=== PATIENT | male | born 1945 | race American Indian/Alaskan Native ===

== ENCOUNTER 2020-04-13 11:09 | Inpatient (IN) | payer MEDICARE ==
[2020-04-13] MEDS ORDERED: CEFEPIME/NS 2 GM/100 ML 2 GM/100 ML BAG IV ONE (12:16)
[2020-04-13] MEDS ORDERED: SODIUM CHLORIDE 0.9% 500 ML 500 ML IV ONE ×2 (12:16→13:55)
--- NOTE | 2020-04-13 12:22 | Emergency Department Report ---
ED Shortness of Breath HPI - General Chief Complaint: Dyspnea/Respdistress Stated Complaint: DAKOTA Time Seen by Provider: 04/13/20 12:10 - History of Present Illness Initial Comments: Patient is a 75-year-old male with history of heart failure who presents to the emergency department with complaint of difficulty breathing. Patient states his symptoms started on today. He reports that he has had chills but no fevers. He has had a cough and he feels like he has phlegm stuck in his throat. Patient cannot tell me about any history of taking Lasix. He does denies any COPD asthma or other lung problems. Patient has a indwelling Bustillos catheter. - Related Data Allergies Allergy/AdvReac Type Severity Reaction Status Date / Time lisinopril AdvReac Swelling Verified 04/13/20 12:26 ED Review of Systems ROS: Stated complaint: DAKOTA Other details as noted in HPI Constitutional: chills. denies: fever Eyes: denies: eye discharge ENT: denies: throat pain Respiratory: cough, shortness of breath Cardiovascular: chest pain Endocrine: no symptoms reported Gastrointestinal: denies: abdominal pain, nausea, vomiting Genitourinary: denies: dysuria Musculoskeletal: denies: back pain Skin: denies: rash Neurological: denies: headache Psychiatric: denies: anxiety Hematological/Lymphatic: denies: easy bleeding ED Physical Exam - General General appearance: alert, in distress - Head Head exam: Present: atraumatic, normocephalic - Eye Eye exam: Present: normal appearance, PERRL, EOMI - ENT ENT exam: Present: normal exam - Neck Neck exam: Present: normal inspection - Respiratory Respiratory exam: Present: normal lung sounds bilaterally, respiratory distress - Cardiovascular Cardiovascular Exam: Present: regular rate, normal rhythm, normal heart sounds - GI/Abdominal GI/Abdominal exam: Present: soft. Absent: distended, tenderness - Rectal Rectal exam: Present: deferred - Extremities Exam Extremities exam: Present: normal inspection - Back Exam Back exam: Present: normal inspection - Neurological Exam Neurological exam: Present: alert, oriented X3 - Psychiatric Psychiatric exam: Present: normal affect - Skin Skin exam: Present: warm, dry, intact ED Course Vital Signs 04/13/20 04/13/20 04/13/20 12:18 13:53 14:54 Temperature 97.7 F Pulse Rate 81 69 Respiratory 20 19 14 Rate Blood Pressure 89/59 Blood Pressure 84/60 [Right] O2 Sat by Pulse 97 95 100 Oximetry 04/13/20 04/13/20 04/13/20 15:01 15:15 15:31 Temperature Pulse Rate 80 80 80 Respiratory 19 18 12 Rate Blood Pressure 145/111 83/57 85/58 Blood Pressure [Right] O2 Sat by Pulse 97 99 100 Oximetry 04/13/20 04/13/20 04/13/20 15:45 16:00 17:01 Temperature Pulse Rate 80 80 80 Respiratory 12 13 12 Rate Blood Pressure 85/58 85/46 91/63 Blood Pressure [Right] O2 Sat by Pulse 100 72 L 100 Oximetry 04/13/20 18:15 Temperature Pulse Rate 80 Respiratory 22 Rate Blood Pressure 97/60 Blood Pressure [Right] O2 Sat by Pulse 99 Oximetry - Reevaluation(s) Reevaluation #1: 04/13/20 13:54 I have reviewed patient's labs and imaging. Patient has a mixed picture as given that he is a half-way resident I am concerned for COVID-19 pneumonia. Patient also has an elevated lactic acid. His chest x-ray shows infiltrates bilaterally which could be consistent with pulmonary edema versus an infectious process. Patient also has a moderate sized right pleural effusion. Plan to maintain patient off supplemental oxygen. Will give gentle fluid boluses in o rder to raise his blood pressure as he is currently hypotensive. If patient remains hypotensive he may require admission to the ICU on pressors. Reevaluation #2: 04/13/20 15:24 Patient is noted to still be hypotensive. Patient's troponin is mildly elevated but he denies chest pain. Will order repeat troponin. Will do bedside ultrasound to evaluate cardiac function and patient likely be started on dopamine. 04/13/20 19:17 Reevaluation #3: 04/13/20 19:18 Central line was placed. Dopamine has been ordered in order to maintain patient's maps above 65. - Central Line Placement Right IJ Consent Obtained: written consent Time Out Performed: Yes Patient Placed on Monitor/Pulse Ox: Yes Prep: mask, gown, gloves Central Line Prep: Chlorhexidine scrub, sterile drapes applied Local Anesthesia Used: Lidocaine 1% Amount of Anesthesia Used (mls): 2 Ultrasound Used for Placement: Yes Central Line Lumen Inserted: triple Bloods Obtained for Lab: Yes Central Line Position: good blood return, all ports aspirated, flus, sutured in place with 2-0 Dressing Applied: Tegaderm Post Procedure X-Ray: tip of catheter in good p Patient Tolerated Procedure: well, no complications Complications: none ED Medical Decision Making - Lab Data Result diagrams: 04/13/20 12:38 04/13/20 12:37 - EKG Data -: EKG Interpreted by Me - EKG Data When compared to previous EKG there are: previous EKG unavailable 04/13/20 15:[address] rhythm atrial-ventricular dual sinus rhythm, rate of 80, left axis deviation. - Medical Decision Making 75-year-old male with history of heart failure who presents to the emergency department with complaint of shortness of breath. Patient is a half-way resident. Differential includes pneumonia, COVID-19 infection with pneumonia, sepsis, ACS, heart failure exacerbation. Plan for evaluation with EKG, chest x- ray. Patient initial blood pressure is hypotensive so he will get a 500 cc fluid bolus we will reassess him after this bolus. He will also be started on IV antibiotics, vancomycin and cefepime as he is currently undergoing treatment for pneumonia. Patient likely to be admitted for further management. Critical care attestation.: If time is entered above; I have spent that time in minutes in the direct care of this critically ill patient, excluding procedure time. ED Disposition Clinical Impression: Acute decompensated heart failure, Cardiogenic shock Disposition: OP ADMIT IP TO THIS HOSP Is pt being admited?: Yes Does the pt Need Aspirin: Yes Condition: Critical Referrals: SHAQUILLE SAUCEDA MD [Primary Care Provider] - 3-5 Days
--- NOTE | 2020-04-13 12:58 | XRay Report ---
CHEST 1 VIEW INDICATION: cough; sepsis. COMPARISON: None FINDINGS: Support devices: Multilead pacemaker device is in position Heart: Mild cardiomegaly Lungs/Pleura: Mild central pulmonary venous congestion and small to medium right pleural effusion. No pneumothorax. Additional findings: None. IMPRESSION: Mild CHF Signer Name: Marty Calderón Jr, MD Signed: 04/13/2020 12:53 PM Workstation Name: [id number]
[2020-04-13] MEDS ORDERED: VANCOMYCIN PHARMACY TO DOSE IV SCH (13:00)
[2020-04-13 13:11] LABS: Basophils # (Auto) 0.1 K/mm3 (0.0-0.1); Basophils % (Auto) 1.3 % (0.0-1.8); Eosinophils # (Auto) 0.1 K/mm3 (0.0-0.4); Eosinophils % (Auto) 0.9 % (0.0-4.3); Hematocrit 37.5 % (35.5-45.6); Hemoglobin 12.2 gm/dl (11.8-15.2); Lymphocytes # (Auto) 1.1 K/mm3 (1.2-5.4); Lymphocytes % (Auto) 13.8 % (13.4-35.0); Mean Corpuscular HGB Conc 33 % (32-34); Mean Corpuscular Volume 96 fl (84-94); Monocytes # (Auto) 0.6 K/mm3 (0.0-0.8); Monocytes % (Auto) 7.7 % (0.0-7.3); Platelet Count 244 K/mm3 (140-440); Red Blood Count 3.91 M/mm3 (3.65-5.03); Red Cell Distribution Width 17.6 % (13.2-15.2)
[2020-04-13 13:23] LABS: Partial Thromboplastin Time 27.4 Sec. (24.2-36.6)
[2020-04-13 13:38] LABS: Albumin 2.7 g/dL (3.9-5); Calcium 8.5 mg/dL (8.4-10.2)
[2020-04-13] MEDS ORDERED: VANCOMYCIN 1,500 MG in SODIUM CHLORIDE 0.9% 500 ML 500 ML IV ONE (14:00)
[2020-04-13 14:25] LABS: Chol/HDL Ratio 2.42 %
--- NOTE | 2020-04-13 14:53 | Nuclear Medicine Report ---
Nuclear medicine perfusion only lung scan History: ELEVATED DIMER; SOB; ELEVATED CREATINIE Comparison: Chest radiograph dated 04/13/2020. Procedure: The patient was administered 5.0 mCi of technetium 99m labeled MAA intravenously. Findings: Perfusion abnormality of the right lung base likely related to pleural effusion and atelect asis seen on chest radiograph. No segmental wedge-shaped perfusion abnormalities. Artifact noted over the left chest wall secondary to the patient's cardiac device. Radiotracer noted along the right arm . Impression: Low probability of pulmonary embolism. Perfusion abnormality in the right lung base likel y related to the pleural effusion and atelectasis seen on chest radiograph. Signer Name: Silvano Reilly MD Signed: 04/13/2020 2:49 PM Workstation Name: [id number]
[2020-04-13] MEDS ORDERED: ASPIRIN 81 MG TAB CHEW PO ONE (15:04)
[2020-04-13] MEDS ORDERED: DOPamine/D5W 800 MG/250 ML 800 MG/250 ML BAG IV ONE (15:43)
[2020-04-13] MEDS ORDERED: ACETAMINOPHEN 500 MG TAB PO ONE (16:22)
[2020-04-13 16:28] LABS: Bacteria,Urine 4+ /HPF (Negative); Bilirubin,Urine NEG (Negative); Blood,Urine NEG (Negative); Color,Urine Yellow (Yellow); Urobilinogen,Urine < 2.0 mg/dL (<2.0)
[2020-04-13 16:39] LABS: Protein,Urine >500 mg/dL (Negative)
[2020-04-13 19:08] LABS: INR 1.42 (0.87-1.13)
--- NOTE | 2020-04-13 19:15 | XRay Report ---
CHEST 1 VIEW INDICATION: cvl placement COMPARISON: Earlier exam same day FINDINGS: Support devices: Right jugular line has been placed, with its tip in the superior vena cava, immediat yahir above the atriocaval junction. Heart: Mildly enlarged but stable Lungs/Pleura: Pleural parenchymal disease in the right base, unchanged. Diffuse interstitial edema ap pears minimally improved. IMPRESSION: 1. Right jugular line in the superior vena cava. 2. Minimal improvement in the interstitial edema. Signer Name: Georges New MD Signed: 04/13/2020 7:11 PM Workstation Name: [id number]
[2020-04-13] MEDS ORDERED: HEPARIN 5,000 UNIT/1 ML VIAL SUB-Q SCH (22:00)
[2020-04-13] MEDS ORDERED: SODIUM CHLORIDE 0.9% 250ML 250 ML IV ONE (23:17)
[2020-04-14] MEDS ORDERED: ACETAMINOPHEN 325 MG TAB PO ONE (00:03)
--- NOTE | 2020-04-14 01:10 | History and Physical Report ---
History of Present Illness Date of examination: 04/14/20 Date of admission: 04/13/20 17:07 Chief complaint: SOB 3 days History of present illness: 75-year-old man with history of congestive heart failure, hypertension, coronary artery disease and peripheral neuropathy comes in for difficulty breathing of 1 day duration. Patient has orthopnea. Patient has cough. No no fever or chills. No exposure to coronavirus. No COPD or asthma. Patient has indwelling Bustillos catheter. Shortness of breath on minimal exertion. Patient has class IV NYHA symptoms. Review of Systems ROS: Stated complaint: DAKOTA Other details as noted in HPI Constitutional: chills. denies: fever Eyes: denies: eye discharge ENT: denies: throat pain Respiratory: cough, shortness of breath Cardiovascular: chest pain Endocrine: no symptoms reported Gastrointestinal: denies: abdominal pain, nausea, vomiting Genitourinary: denies: dysuria Musculoskeletal: denies: back pain Skin: denies: rash Neurological: denies: headache Psychiatric: denies: anxiety Hematological/Lymphatic: denies: easy bleeding Past History Past Medical History: CAD, GERD, heart failure, hyperlipidemia, other (E rythematous) Past Surgical History: No surgical history Social history: full code Family history: hypertension Medications and Allergies Allergies Allergy/AdvReac Type Severity Reaction Status Date / Time lisinopril AdvReac Swelling Verified 04/13/20 12:26 Home Medications Medication Instructions Recorded Confirmed Last Taken Type Amiodarone 200 mg PO DAILY 04/14/20 04/14/20 Unknown History AtorvaSTATin 40 mg PO DAILY 04/14/20 04/14/20 Unknown History Gabapentin 300 mg PO DAILY 04/14/20 04/14/20 Unknown History Metoprolol 25 mg PO DAILY 04/14/20 04/14/20 Unknown History Omeprazole 40 mg PO DAILY 04/14/20 04/14/20 Unknown History Plavix 75 mg PO DAILY 04/14/20 04/14/20 Unknown History Spironolactone 25 mg PO DAILY 04/14/20 04/14/20 Unknown History Active Meds: Active Medications Heparin Sodium (Porcine) (Heparin 5,000 Unit/1 Ml Vial) 5,000 unit SUB-Q Q8HR MEGAN Last Admin: 04/13/20 22:52 Dose: 5,000 unit Documented by: Dopamine HCl/Dextrose (Intropin Drip 800 Mg/D5w 250 Ml) 800 mg in 250 mls @ 2.619 mls/hr IV TITR ONE; Protocol Stop: 04/17/20 15:10 Last Titration: 04/13/20 20:50 Dose: 0 mcg/kg/min, 0 mls/hr Documented by: Exam - Constitutional Vitals: Temp Pulse Resp BP Pulse Ox 97.7 F 80 24 89/61 95 04/13/20 12:18 04/13/20 21:00 04/13/20 21:00 04/13/20 21:00 04/13/20 21:00 General appearance: Present: mild distress, well-nourished - EENT Eyes: Present: PERRL ENT: hearing intact, clear oral mucosa - Neck Neck: Present: supple, normal ROM - Respiratory Respiratory effort: normal Respiratory: bilateral: CTA - Cardiovascular Heart rate: 78 Rhythm: regular Heart Sounds: Present: S1 & S2. Absent: rub, click - Extremities Extremities: no ischemia, pulses intact, pulses symmetrical, No edema Peripheral Pulses: within normal limits - Abdominal General gastrointestinal: Present: soft, non-tender, non-distended, normal bowel sounds Male genitourinary: Present: normal - Integumentary Integumentary: Present: clear, warm, dry - Musculoskeletal Musculoskeletal: gait normal, strength equal bilaterally - Psychiatric Psychiatric: appropriate mood/affect, intact judgment & insight - Neurologic Neurologic: CNII-XII intact, moves all extremities - Allied Health Allied health notes reviewed: nursing, case management HEART Score - HEART Score History: Highly suspicious EKG: Non-specific Age: > 65 Risk factors: > 3 risk factors or hx of atherosclerotic disease Troponin: Troponin T 0.076 ng/mL (0.00-0.029) H 04/13/20 18:45 - Critical Actions Critical Actions: 4-6 pts:12-16.6% risk of adverse cardiac event. Should be admitted Results - Labs CBC & Chem 7: 04/13/20 12:38 04/13/20 12:37 Labs: Laboratory Last Values WBC 8.0 K/mm3 (4.5-11.0) 04/13/20 12:38 RBC 3.91 M/mm3 (3.65-5.03) 04/13/20 12:38 Hgb 12.2 gm/dl (11.8-15.2) 04/13/20 12:38 Hct 37.5 % (35.5-45.6) 04/13/20 12:38 MCV 96 fl (84-94) H 04/13/20 12:38 MCH 31 pg (28-32) 04/13/20 12:38 MCHC 33 % (32-34) 04/13/20 12:38 RDW 17.6 % (13.2-15.2) H 04/13/20 12:38 Plt Count 244 K/mm3 (140-440) 04/13/20 12:38 Lymph % (Auto) 13.8 % (13.4-35.0) 04/13/20 12:38 Price % (Auto) 7.7 % (0.0-7.3) H 04/13/20 12:38 Eos % (Auto) 0.9 % (0.0-4.3) 04/13/20 12:38 Baso % (Auto) 1.3 % (0.0-1.8) 04/13/20 12:38 Lymph # (Auto) 1.1 K/mm3 (1.2-5.4) L 04/13/20 12:38 Price # (Auto) 0.6 K/mm3 (0.0-0.8) 04/13/20 12:38 Eos # (Auto) 0.1 K/mm3 (0.0-0.4) 04/13/20 12:38 Baso # (Auto) 0.1 K/mm3 (0.0-0.1) 04/13/20 12:38 Seg Neutrophils % 76.3 % (40.0-70.0) H 04/13/20 12:38 Seg Neutrophils # 6.1 K/mm3 (1.8-7.7) 04/13/20 12:38 PT 17.2 Sec. (12.2-14.9) H 04/13/20 18:45 INR 1.42 (0.87-1.13) H 04/13/20 18:45 APTT 27.4 Sec. (24.2-36.6) 04/13/20 12:37 D-Dimer 1940.43 ng/mlDDU (0-234) H 04/13/20 12:37 Sodium 132 mmol/L (137-145) L 04/13/20 12:37 Potassium 5.0 mmol/L (3.6-5.0) 04/13/20 12:37 Chloride 98.6 mmol/L (98-107) 04/13/20 12:37 Carbon Dioxide 23 mmol/L (22-30) 04/13/20 12:37 Anion Gap 15 mmol/L 04/13/20 12:37 BUN 30 mg/dL (9-20) H 04/13/20 12:37 Creatinine 1.7 mg/dL (0.8-1.3) H 04/13/20 12:37 Estimated GFR 48 ml/min 04/13/20 12:37 BUN/Creatinine Ratio 18 % 04/13/20 12:37 Glucose 108 mg/dL (75-100) H 04/13/20 12:37 Lactic Acid 1.90 mmol/L (0.7-2.0) 04/13/20 15:01 Calcium 8.5 mg/dL (8.4-10.2) 04/13/20 12:37 Magnesium 2.50 mg/dL (1.7-2.3) H 04/13/20 12:37 Ferritin 520.4 ng/mL (30.0-300.0) H 04/13/20 12:37 Total Bilirubin 0.30 mg/dL (0.1-1.2) 04/13/20 12:37 AST 34 units/L (5-40) 04/13/20 12:37 ALT 60 units/L (7-56) H 04/13/20 12:37 Alkaline Phosphatase 137 units/L (35-129) H 04/13/20 12:37 Lactate Dehydrogenase 302 units/L (91-180) H 04/13/20 12:37 Troponin T 0.076 ng/mL (0.00-0.029) H 04/13/20 18:45 C-Reactive Protein 2.00 mg/dL (0.00-1.30) H 04/13/20 12:37 NT-Pro-B Natriuret Pep 25378 pg/mL (0-900) H 04/13/20 12:37 Total Protein 6.5 g/dL (6.3-8.2) 04/13/20 12:37 Albumin 2.7 g/dL (3.9-5) L 04/13/20 12:37 Albumin/Globulin Ratio 0.7 % 04/13/20 12:37 Triglycerides 73 mg/dL (2-149) 04/13/20 12:37 Cholesterol 143 mg/dL (50-199) 04/13/20 12:37 LDL Cholesterol Direct 73 mg/dL (50-130) 04/13/20 12:37 HDL Cholesterol 59 mg/dL (40-59) 04/13/20 12:37 Cholesterol/HDL Ratio 2.42 % 04/13/20 12:37 Procalcitonin 0.21 ng/mL (<0.15) 04/13/20 12:37 Urine Color Yellow (Yellow) 04/13/20 16:07 Urine Turbidity Cloudy (Clear) 04/13/20 16:07 Urine pH 6.0 (5.0-7.0) 04/13/20 16:07 Ur Specific [place] 1.023 (1.003-1.030) 04/13/20 16:07 Urine Protein >500 mg/dL (Negative) 04/13/20 16:07 Urine Glucose (UA) Neg mg/dL (Negative) 04/13/20 16:07 Urine Ketones Tr mg/dL (Negative) 04/13/20 16:07 Urine Blood Neg (Negative) 04/13/20 16:07 Urine Nitrite Neg (Negative) 04/13/20 16:07 Urine Bilirubin Neg (Negative) 04/13/20 16:07 Urine Urobilinogen < 2.0 mg/dL (<2.0) 04/13/20 16:07 Ur Leukocyte Esterase Lg (Negative) 04/13/20 16:07 Urine WBC (Auto) 173.0 /HPF (0.0-6.0) H 04/13/20 16:07 Urine RBC (Auto) 8.0 /HPF (0.0-6.0) 04/13/20 16:07 Urine Bacteria (Auto) 4+ /HPF (Negative) 04/13/20 16:07 Short CBC 04/13/20 Range/Units 12:38 WBC 8.0 (4.5-11.0) K/mm3 Hgb 12.2 (11.8-15.2) gm/dl Hct 37.5 (35.5-45.6) % Plt Count 244 (140-440) K/mm3 BMP 04/13/20 12:37 Sodium 132 L Potassium 5.0 Chloride 98.6 Carbon Dioxide 23 BUN 30 H Creatinine 1.7 H Glucose 108 H Calcium 8.5 Cardiac Enzymes 04/13/20 04/13/20 04/13/20 Range/Units 12:37 15:17 18:45 Troponin T 0.071 H 0.069 H 0.076 H (0.00-0.029) ng/mL Liver Function 04/13/20 Range/Units 12:37 Total Bilirubin 0.30 (0.1-1.2) mg/dL AST 34 (5-40) units/L ALT 60 H (7-56) units/L Alkaline Phosphatase 137 H (35-129) units/L Albumin 2.7 L (3.9-5) g/dL Urine 04/13/20 Range/Units 16:07 Urine Color Yellow (Yellow) Urine pH 6.0 (5.0-7.0) Ur Specific [place] 1.023 (1.003-1.030) Urine Protein >500 (Negative) mg/dL Urine Glucose (UA) Neg (Negative) mg/dL Short CBC 04/13/20 Range/Units 12:38 WBC 8.0 (4.5-11.0) K/mm3 Hgb 12.2 (11.8-15.2) gm/dl Hct 37.5 (35.5-45.6) % Plt Count 244 (140-440) K/mm3 [facility] 04/13/20 12:37 Sodium 132 L Potassium 5.0 Chloride 98.6 Carbon Dioxide 23 BUN 30 H Creatinine 1.7 H Glucose 108 H Calcium 8.5 Cardiac Enzymes 04/13/20 04/13/20 04/13/20 Range/Units 12:37 15:17 18:45 Troponin T 0.071 H 0.069 H 0.076 H (0.00-0.029) ng/mL Liver Function 04/13/20 Range/Units 12:37 Total Bilirubin 0.30 (0.1-1.2) mg/dL AST 34 (5-40) units/L ALT 60 H (7-56) units/L Alkaline Phosphatase 137 H (35-129) units/L Albumin 2.7 L (3.9-5) g/dL Urine 04/13/20 Range/Units 16:07 Urine Color Yellow (Yellow) Urine pH 6.0 (5.0-7.0) Ur Specific [place] 1.023 (1.003-1.030) Urine Protein >500 (Negative) mg/dL Urine Glucose (UA) Neg (Negative) mg/dL Microbiology: Microbiology 04/13/20 12:37 Peripheral/Venous Blood Culture - Preliminary Culture in Progress 04/13/20 12:37 Peripheral/Venous Blood Culture - Preliminary Culture in Progress - Imaging and Cardiology EKG: report reviewed (Sinus rhythm) Chest x-ray: report reviewed Imaging and Cardiology: Chest x-ray Mild CHF Bustillos/IV: IV Catheter Type [Right Hand] INT / Saline Lock Assessment and Plan Advance Directives: Yes (Fy\ull code) VTE prophylaxis?: Chemical Plan of care discussed with patient/family: Yes - Patient Problems (1) Acute exacerbation of CHF (congestive heart failure) Current Visit: Yes Status: Acute Qualifiers: Heart failure type: combined systolic and diastolic Qualified Code(s): I50.43 - 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 transplanted heart: [place] heart Plan to address problem: On Plavix (3) Hypotension Current Visit: Yes Status: Acute Plan to address problem: On dopamine drip. Titrate to discontinue DC (4) Peripheral neuropathy Current Visit: Yes Status: Chronic Qualifiers: Peripheral neuropathy type: polyneuropathy, unspecified Qualified Code(s): G62.9 - Polyneuropathy, unspecified Plan to address problem: Continue gabapentin (5) Hyperlipidemia Current Visit: Yes Status: Chronic Qualifiers: Hyperlipidemia type: mixed hyperlipidemia Qualified Code(s): E78.2 - Mixed hyperlipidemia Plan to address problem: Continue statins (6) GERD (gastroesophageal reflux disease) Current Visit: Yes Status: Chronic Qualifiers: Esophagitis presence: without esophagitis Qualified Code(s): K21.9 - Gastro-esophageal reflux disease without esophagitis Plan to address problem: Continue PPIs (7) Arrhythmia Current Visit: Yes Status: Chronic Qualifiers: Arrhythmia type: unspecified cardiac arrhythmia Qualified Code(s): I49.9 - Cardiac arrhythmia, unspecified Plan to address problem: Continue amiodarone (8) Person under investigation for COVID-19 Current Visit: Yes Status: Acute Plan to address problem: Unlikely but ED ordered the coronavirus PCR (9) DVT prophylaxis Current Visit: Yes Status: Acute Plan to address problem: On heparin and GI prophylaxis
[2020-04-14] MEDS ORDERED: ONDANSETRON 4 MG/2 ML INJ IV PRN (01:11)
[2020-04-14] MEDS ORDERED: HYDROmorphone 1 MG/1 ML INJ IV PRN (01:11)
[2020-04-14] MEDS ORDERED: FAMOTIDINE 20 MG/2 ML INJ IV SCH (02:00)
[2020-04-14] MEDS: cefTRIAXone/NS 2 GM/100 ML 2 GM/100 ML BAG IV SCH (05:18)
[2020-04-14] MEDS: FAMOTIDINE 20 MG/2 ML INJ IV SCH ×3 (05:23→22:01)
[2020-04-14] MEDS: FUROSEMIDE 40 MG/4 ML INJ IV SCH (05:24)
[2020-04-14] MEDS ORDERED: NON-FORMULARY EACH (Amiodarone 200 MG) PO SCH (10:30)
[2020-04-14] MEDS: POTASSIUM CHLORIDE ER 20 MEQ TAB PO SCH (10:42)
[2020-04-14] MEDS: HEPARIN 5,000 UNIT/1 ML VIAL SUB-Q SCH ×2 (10:43→22:02)
[2020-04-14] MEDS ORDERED: NON-FORMULARY EACH (Gabapentin 300 MG) PO SCH (10:45)
[2020-04-14] MEDS ORDERED: NON-FORMULARY EACH (Spironolactone 25 MG) PO SCH (10:45)
[2020-04-14] MEDS ORDERED: NON-FORMULARY EACH (Atorvastatin 40 MG) PO SCH (10:45)
[2020-04-14] MEDS ORDERED: NON-FORMULARY EACH (Plavix 75 MG) PO SCH (10:45)
[2020-04-14] MEDS ORDERED: NON-FORMULARY EACH (Omeprazole 40 MG) PO SCH (10:45)
[2020-04-14] MEDS: CLOPIDOGREL 75 MG TAB PO SCH (11:13)
[2020-04-14] MEDS: GABAPENTIN 300 MG CAP PO SCH (11:13)
[2020-04-14] MEDS: AMIODARONE 200 MG TAB PO SCH (11:13)
[2020-04-14] MEDS: SPIRONOLACTONE 25 MG TAB PO SCH (11:14)
--- NOTE | 2020-04-14 14:55 | Consultation ---
History of Present Illness Consult date: 04/14/20 Consult reason: congestive heart failure History of present illness: This patient is a 75-year-old man from the [facility], admitted with shortness of breath, nonproductive cough and clinical presentation consistent with heart failure exacerbation and fluid overload. He usually receives his care at the [facility], has a history of a dilated cardiomyopathy and an in situ dual-chamber cardiac defibrillator. He states that his defibrillator was implanted about 12 years ago, and he has intermittent follow-up at the [facility] in [place]. He is unable to articulate his most recent left ventricular ejection fraction assessment, and unable to articulate results of any recent or prior coronary artery disease evaluation. His medications on this presentation include amiodarone, metoprolol, spironolactone. He is also on a statin and Plavix, but no afterload reducing agent is listed. ECG on this presentation is a dual chamber paced rhythm, chest x-ray shows a moderate to severe enlargement of the cardiac silhouette, indwelling dual- chamber ICD, small right pleural effusion and mild bilateral interstitial edema. Past History Past Medical History: CAD, GERD, heart failure, hyperlipidemia Past Surgical History: No surgical history, Other (Dual-chamber ICD implant) Social history: full code Family history: hypertension Medications and Allergies Allergies Allergy/AdvReac Type Severity Reaction Status Date / Time lisinopril AdvReac Swelling Verified 04/13/20 12:26 Home Medications Medication Instructions Recorded Confirmed Last Taken Type Amiodarone 200 mg PO DAILY 04/14/20 04/14/20 Unknown History AtorvaSTATin 40 mg PO DAILY 04/14/20 04/14/20 Unknown History Gabapentin 300 mg PO DAILY 04/14/20 04/14/20 Unknown History Metoprolol 25 mg PO DAILY 04/14/20 04/14/20 Unknown History Omeprazole 40 mg PO DAILY 04/14/20 04/14/20 Unknown History Plavix 75 mg PO DAILY 04/14/20 04/14/20 Unknown History Spironolactone 25 mg PO DAILY 04/14/20 04/14/20 Unknown History Active Meds: Active Medications Acetaminophen (Acetaminophen 325 Mg Tab) 650 mg PO Q4H PRN PRN Reason: Pain MILD(1-3)/Fever >100.5/KAY Amiodarone HCl (Amiodarone 200 Mg Tab) 200 mg PO DAILY MEGAN Last Admin: 04/14/20 11:13 Dose: 200 mg Documented by: Atorvastatin Calcium (Atorvastatin 40 Mg Tab) 40 mg PO QHS [facility] Clopidogrel Bisulfate (Clopidogrel 75 Mg Tab) 75 mg PO QDAY [facility] Last Admin: 04/14/20 11:13 Dose: 75 mg Documented by: Famotidine (Famotidine 20 Mg/2 Ml Inj) 10 mg IV BID [facility] Last Admin: 04/14/20 10:43 Dose: 10 mg Documented by: Furosemide (Furosemide 40 Mg/4 Ml Inj) 40 mg IV 0600 [facility] Last Admin: 04/14/20 05:24 Dose: 40 mg Documented by: Gabapentin (Gabapentin 300 Mg Cap) 300 mg PO DAILY [facility] Last Admin: 04/14/20 11:13 Dose: 300 mg Documented by: Heparin Sodium (Porcine) (Heparin 5,000 Unit/1 Ml Vial) 5,000 unit SUB-Q Q12H [facility] Last Admin: 04/14/20 10:43 Dose: 5,000 unit Documented by: Hydromorphone HCl (Hydromorphone 1 Mg/1 Ml Inj) 0.5 mg IV Q3H PRN PRN Reason: Pain , Severe (7-10) Dopamine HCl/Dextrose (Intropin Drip 800 Mg/D5w 250 Ml) 800 mg in 250 mls @ 2.619 mls/hr IV TITR ONE; Protocol Stop: 04/17/20 15:10 Last Titration: 04/13/20 20:50 Dose: 0 mcg/kg/min, 0 mls/hr Documented by: Ceftriaxone Sodium (Rocephin/Ns 2 Gm/100 Ml) 2 gm in 100 mls @ 200 mls/hr IV Q24H [facility]; Protocol Last Admin: 04/14/20 05:18 Dose: 200 mls/hr Documented by: Milrinone Lactate/Dextrose (Milrinone-D5w 20 Mg/100 Ml) 20 mg in 100 mls @ 5 .235 mls/hr IV TITR [facility] Stop: 04/17/20 14:59 Isosorbide Dinitrate/Hydralazine (Isosorb Dinit/Hydralazine 20-37.5mg Tab) 1 each PO Q8HR [facility] Ondansetron HCl (Ondansetron 4 Mg/2 Ml Inj) 4 mg IV Q8H PRN PRN Reason: Nausea And Vomiting Oxycodone/Acetaminophen (Oxycodone /Acetaminophen 5-325mg Tab) 1 tab PO Q6H PRN PRN Reason: Pain, Moderate (4-6) Potassium Chloride (Potassium Chloride Er 20 Meq Tab) 20 meq PO Q24HR [facility] Last Admin: 04/14/20 10:42 Dose: 20 meq Documented by: Sodium Chloride (Sodium Chloride 0.9% 10 Ml Flush Syringe) 10 ml IV BID [facility] Last Admin: 04/14/20 11:02 Dose: 10 ml Documented by: Sodium Chloride (Sodium Chloride 0.9% 10 Ml Flush Syringe) 10 ml IV PRN PRN PRN Reason: LINE FLUSH Spironolactone (Spironolactone 25 Mg Tab) 25 mg PO QDAY [facility] Last Admin: 04/14/20 11:14 Dose: Not Given Documented by: Review of Systems Cardiovascular: orthopnea, shortness of breath, no chest pain, no palpitations, no rapid/irregular heart beat, no edema, no syncope, no lightheadedness Physical Examination Vital Signs Temp Pulse Resp BP Pulse Ox 97.7 F 81 20 89/59 97 04/13/20 12:18 04/13/20 12:18 04/13/20 12:18 04/13/20 12:18 04/13/20 12:18 General appearance: mild distress HEENT: Positive: PERRL Neck: Positive: neck supple Cardiac: Positive: Irregularly Regular Lungs: Positive: Decreased Breath Sounds Neuro: Positive: Grossly Intact Abdomen: Positive: Soft Male genitourinary: Positive: deferred Skin: Positive: Clear Extremities: Absent: edema Results 04/13/20 12:38 04/13/20 12:37 Coagulation 04/13/20 Range/Units 18:45 PT 17.2 H (12.2-14.9) Sec. INR 1.42 H (0.87-1.13) EKG interpretations Pacemaker: ventricular pacing w/capt, atrial pacing w/capture Assessment and Plan - Patient Problems (1) Acute exacerbation of CHF (congestive heart failure) Current Visit: Yes Status: Acute Qualifiers: Heart failure type: combined systolic and diastolic Qualified Code(s): I50.43 - Acute on chronic combined systolic (congestive) and diastolic (congestive) heart failure Plan to address problem: Patient with a history of dilated cardiomyopathy, in situ cardiac defibrillator, usual care at the [facility]. He presents with shortness of breath and evidence of decompensated congestive heart failure. In addition to guideline directed medical therapy, we will use aggressive diuretic therapy, salt reduction and possible trial of intravenous milrinone. An echocardiogram will be done for left ventricular function reassessment. Other cardiac evaluation will depend on clinical course.
[2020-04-14] MEDS: ISOSORB DINIT/HYDRALAZINE 20-37.5MG TAB PO SCH (18:26)
[2020-04-14] MEDS: ACETAMINOPHEN 325 MG TAB PO PRN (20:41)
--- NOTE | 2020-04-14 21:00 | Progress Note ---
Assessment and Plan - Patient Problems (1) Acute exacerbation of CHF (congestive heart failure) Current Visit: Yes Status: Acute Qualifiers: Heart failure type: combined systolic and diastolic Qualified Code(s): I50.43 - Acute on chronic combined systolic (congestive) and diastolic (congestive) heart failure Plan to address problem: BNP is elevated History is consistent with CHF exacerbation Daily weights and intake output IV Lasix only 1 dose at 6 AM because of the hyper hypotension Patient started on milrinone drip for optimizing his ejection fraction Milligram drip to continue till at 1500hrs (2) Coronary artery disease Current Visit: Yes Status: Chronic Qualifiers: Coronary Disease-Associated Artery/Lesion type: [place] artery [place] vs. transplanted heart: [place] heart Plan to address problem: On Plavix (3) Hypotension Current Visit: Yes Status: Acute Plan to address problem: Improved (4) Peripheral neuropathy Current Visit: Yes Status: Chronic Qualifiers: Peripheral neuropathy type: polyneuropathy, unspecified Qualified Code(s): G62.9 - Polyneuropathy, unspecified Plan to address problem: Continue gabapentin (5) Hyperlipidemia Current Visit: Yes Status: Chronic Qualifiers: Hyperlipidemia type: mixed hyperlipidemia Qualified Code(s): E78.2 - Mixed hyperlipidemia Plan to address problem: Continue statins (6) GERD (gastroesophageal reflux disease) Current Visit: Yes Status: Chronic Qualifiers: Esophagitis presence: without esophagitis Qualified Code(s): K21.9 - Gastro-esophageal reflux disease without esophagitis Plan to address problem: Continue PPIs (7) Arrhythmia Current Visit: Yes Status: Chronic Qualifiers: Arrhythmia type: unspecified cardiac arrhythmia Qualified Code(s): I49.9 - Cardiac arrhythmia, unspecified Plan to address problem: Continue amiodarone (8) Person under investigation for COVID-19 Current Visit: Yes Status: Acute Plan to address problem: Unlikely but ED ordered the coronavirus PCR (9) DVT prophylaxis Current Visit: Yes Status: Acute Plan to address problem: On heparin and GI prophylaxis Subjective Date of service: 04/14/20 Principal diagnosis: CHF exacerbation Interval history: 75-year-old man with history of congestive heart failure, hypertension, coronary artery disease and peripheral neuropathy comes in for difficulty breathing of 1 day duration. Patient has orthopnea. Patient has cough. No no fever or chills. No exposure to coronavirus. No COPD or asthma. Patient has indwelling Bustillos catheter. Shortness of breath on minimal exertion. Patient has class IV NYHA symptoms. Patient started on milrinone drip pressure last April 17, 2020 Objective - Constitutional Vitals: Vital Signs - 12hr 04/14/20 04/14/20 04/14/20 09:00 09:09 11:18 Temperature Pulse Rate Pulse Rate [ 80 Radial] Respiratory 16 16 Rate Blood Pressure 111/54 119/58 O2 Sat by Pulse 96 98 97 Oximetry 04/14/20 04/14/20 04/14/20 11:59 12:00 12:11 Temperature Pulse Rate 80 80 80 Pulse Rate [ Radial] Respiratory 11 L 12 23 Rate Blood Pressure 109/46 109/46 O2 Sat by Pulse 97 93 97 Oximetry 04/14/20 04/14/20 04/14/20 12:21 12:33 12:41 Temperature Pulse Rate 80 81 Pulse Rate [ Radial] Respiratory 22 25 H Rate Blood Pressure 109/46 109/46 109/46 O2 Sat by Pulse 98 95 96 Oximetry 04/14/20 04/14/20 04/14/20 12:51 13:00 13:11 Temperature Pulse Rate 80 80 80 Pulse Rate [ Radial] Respiratory 16 18 13 Rate Blood Pressure 109/46 111/58 111/58 O2 Sat by Pulse 93 94 93 Oximetry 04/14/20 04/14/20 04/14/20 13:21 13:30 13:41 Temperature Pulse Rate 80 80 80 Pulse Rate [ Radial] Respiratory 25 H 25 H 26 H Rate Blood Pressure 111/58 111/59 111/59 O2 Sat by Pulse 94 88 94 Oximetry 04/14/20 04/14/20 04/14/20 13:50 13:51 14:00 Temperature Pulse Rate 80 80 Pulse Rate [ 80 Radial] Respiratory 16 16 21 Rate Blood Pressure 111/59 111/59 121/58 O2 Sat by Pulse 96 98 92 Oximetry 04/14/20 04/14/20 04/14/20 14:11 14:21 17:07 Temperature 98.0 F Pulse Rate 80 80 80 Pulse Rate [ Radial] Respiratory 15 24 18 Rate Blood Pressure 121/58 121/58 88/58 O2 Sat by Pulse 99 98 100 Oximetry 04/14/20 04/14/20 19:41 20:41 Temperature 97.3 F L Pulse Rate 80 Pulse Rate [ Radial] Respiratory 17 20 Rate Blood Pressure 90/56 O2 Sat by Pulse 97 Oximetry General appearance: Present: no acute distress, well-nourished - EENT Eyes: PERRL, EOM intact ENT: hearing intact, clear oral mucosa Ears: bilateral: normal - Neck Neck: supple, normal ROM - Respiratory Respiratory effort: normal Respiratory: bilateral: CTA - Breasts Breasts: normal - Cardiovascular Heart rate: 78 Rhythm: regular Heart Sounds: Present: S1 & S2. Absent: gallop, rub Extremities: pulses intact, No edema, normal color, Full ROM - Gastrointestinal General gastrointestinal: Present: soft, non-tender, non-distended, normal bowel sounds - Genitourinary Male genitourinary: normal - Integumentary Integumentary: clear, warm, dry - Musculoskeletal Musculoskeletal: 1, strength equal bilaterally - Neurologic Neurologic: moves all extremities - Psychiatric Psychiatric: memory intact, appropriate mood/affect, intact judgment & insight - Labs CBC & Chem 7: 04/15/20 07:05 04/15/20 07:05 Labs: Abnormal lab results 04/14/20 Range/Units 11:47 POC Glucose 123 H (70-105) mg/dL HEART Score - HEART Score EKG: Non-specific Age: > 65 Risk factors: > 3 risk factors or hx of atherosclerotic disease Troponin: Troponin T 0.076 ng/mL (0.00-0.029) H 04/13/20 18:45 - Critical Actions Critical Actions: 4-6 pts:12-16.6% risk of adverse cardiac event. Should be admitted
[2020-04-15] MEDS: cefTRIAXone/NS 2 GM/100 ML 2 GM/100 ML BAG IV SCH (02:00)
[2020-04-15] MEDS: FUROSEMIDE 40 MG/4 ML INJ IV SCH (05:45)
[2020-04-15] MEDS: ISOSORB DINIT/HYDRALAZINE 20-37.5MG TAB PO SCH ×3 (05:46→21:40)
[2020-04-15] MEDS: oxyCODONE /ACETAMINOPHEN 5-325MG TAB PO PRN (05:57)
[2020-04-15] MEDS: MILRINONE-D5W 20 MG/100 ML 20 MG/100 ML BAG IV SCH (06:05)
[2020-04-15 08:23] LABS: Basophils # (Auto) 0.1 K/mm3 (0.0-0.1); Basophils % (Auto) 0.7 % (0.0-1.8); Eosinophils # (Auto) 0.1 K/mm3 (0.0-0.4); Eosinophils % (Auto) 0.8 % (0.0-4.3); Hematocrit 34.9 % (35.5-45.6); Hemoglobin 11.3 gm/dl (11.8-15.2); Lymphocytes # (Auto) 0.9 K/mm3 (1.2-5.4); Lymphocytes % (Auto) 12.6 % (13.4-35.0); Mean Corpuscular HGB Conc 33 % (32-34); Mean Corpuscular Volume 97 fl (84-94); Monocytes # (Auto) 0.9 K/mm3 (0.0-0.8); Monocytes % (Auto) 12.3 % (0.0-7.3); Platelet Count 228 K/mm3 (140-440); Red Blood Count 3.61 M/mm3 (3.65-5.03); Red Cell Distribution Width 17.9 % (13.2-15.2)
[2020-04-15 08:37] LABS: Albumin 2.6 g/dL (3.9-5); Calcium 8.2 mg/dL (8.4-10.2)
[2020-04-15] MEDS: GABAPENTIN 300 MG CAP PO SCH (09:50)
[2020-04-15] MEDS: SPIRONOLACTONE 25 MG TAB PO SCH (09:50)
[2020-04-15] MEDS: AMIODARONE 200 MG TAB PO SCH (09:50)
[2020-04-15] MEDS: CLOPIDOGREL 75 MG TAB PO SCH (09:50)
[2020-04-15] MEDS: POTASSIUM CHLORIDE ER 20 MEQ TAB PO SCH (09:50)
[2020-04-15] MEDS: FAMOTIDINE 20 MG/2 ML INJ IV SCH (09:50)
--- NOTE | 2020-04-15 10:09 | Progress Note ---
Assessment and Plan - Patient Problems (1) Acute exacerbation of CHF (congestive heart failure) Current Visit: Yes Status: Acute Qualifiers: Heart failure type: combined systolic and diastolic Qualified Code(s): I50.43 - Acute on chronic combined systolic (congestive) and diastolic (congestive) heart failure Plan to address problem: Patient with a history of dilated cardiomyopathy, in situ cardiac defibrillator, usual care at the [facility]. He presents with shortness of breath and evidence of decompensated congestive heart failure. In addition to guideline directed medical therapy, we will use aggressive diuretic therapy, salt reduction and trial of intravenous milrinone. An echocardiogram has been ordered for left ventricular function reassessment. Other cardiac evaluation will depend on clinical course. Subjective Date of service: 04/15/20 Interval history: Patient is comfortable, shortness of breath has improved, he is tolerating intravenous milrinone. Objective Vital Signs Temp Pulse Pulse Resp BP Pulse Ox 04/15/20 08:47 94 04/15/20 05:57 20 04/15/20 04:49 98.8 F 80 17 107/51 91 04/14/20 22:50 98.6 F 87 16 98/46 98 04/14/20 22:00 80 04/14/20 21:40 100 04/14/20 20:41 20 04/14/20 19:41 97.3 F L 80 17 90/56 97 04/14/20 17:07 98.0 F 80 18 88/58 100 04/14/20 14:21 80 24 121/58 98 04/14/20 14:11 80 15 121/58 99 04/14/20 14:00 80 21 121/58 92 04/14/20 13:51 80 16 111/59 98 04/14/20 13:50 80 16 111/59 96 04/14/20 13:41 80 26 H 111/59 94 04/14/20 13:30 80 25 H 111/59 88 04/14/20 13:21 80 25 H 111/58 94 04/14/20 13:11 80 13 111/58 93 04/14/20 13:00 80 18 111/58 94 04/14/20 12:51 80 16 109/46 93 04/14/20 12:41 81 25 H 109/46 96 04/14/20 12:33 109/46 95 04/14/20 12:21 80 22 109/46 98 04/14/20 12:11 80 23 109/46 97 04/14/20 12:00 80 12 109/46 93 04/14/20 11:59 80 11 L 97 04/14/20 11:18 80 16 119/58 97 - Physical Examination General: No Apparent Distress HEENT: Positive: PERRL Neck: Positive: neck supple Cardiac: Positive: Reg Rate and Rhythm Lungs: Positive: Decreased Breath Sounds Neuro: Positive: Grossly Intact Abdomen: Positive: Soft Skin: Positive: Clear Extremities: Absent: edema - Labs and Meds Cardiac Enzymes 04/15/20 Range/Units 07:05 AST 34 (5-40) units/L CBC 04/15/20 Range/Units 07:05 WBC 7.2 (4.5-11.0) K/mm3 RBC 3.61 L (3.65-5.03) M/mm3 Hgb 11.3 L (11.8-15.2) gm/dl Hct 34.9 L (35.5-45.6) % Plt Count 228 (140-440) K/mm3 Lymph # (Auto) 0.9 L (1.2-5.4) K/mm3 [place] # (Auto) 0.9 H (0.0-0.8) K/mm3 Eos # (Auto) 0.1 (0.0-0.4) K/mm3 Baso # (Auto) 0.1 (0.0-0.1) K/mm3 Comprehensive Metabolic Panel 04/15/20 Range/Units 07:05 Sodium 135 L (137-145) mmol/L Potassium 4.6 (3.6-5.0) mmol/L Chloride 103.3 (98-107) mmol/L Carbon Dioxide 21 L (22-30) mmol/L BUN 28 H (9-20) mg/dL Creatinine 1.7 H (0.8-1.3) mg/dL Glucose 106 H (75-100) mg/dL Calcium 8.2 L (8.4-10.2) mg/dL AST 34 (5-40) units/L ALT 68 H (7-56) units/L Alkaline Phosphatase 125 (35-129) units/L Total Protein 5.9 L (6.3-8.2) g/dL Albumin 2.6 L (3.9-5) g/dL - Imaging and Cardiology EKG: report reviewed (Sinus rhythm) Pacemaker: ventricular pacing w/capt, atrial pacing w/capture
[2020-04-15] MEDS: HEPARIN 5,000 UNIT/1 ML VIAL SUB-Q SCH ×2 (12:35→21:40)
[2020-04-15] MEDS: FAMOTIDINE 10 MG TAB PO SCH ×2 (16:37→21:40)
[2020-04-15] MEDS: ACETAMINOPHEN 325 MG TAB PO PRN ×2 (16:38→21:47)
--- NOTE | 2020-04-15 21:31 | Progress Note ---
Assessment and Plan - Patient Problems (1) Acute exacerbation of CHF (congestive heart failure) Current Visit: Yes Status: Acute Qualifiers: Heart failure type: combined systolic and diastolic Qualified Code(s): I50.43 - Acute on chronic combined systolic (congestive) and diastolic (congestive) heart failure Plan to address problem: BNP is elevated History is consistent with CHF exacerbation Daily weights and intake output IV Lasix only 1 dose at 6 AM because of the hyper hypotension Patient was on dopamine which was discontinued Echocardiogram for ejection fraction Cardiology consult requested (2) Coronary artery disease Current Visit: Yes Status: Chronic Qualifiers: Coronary Disease-Associated Artery/Lesion type: [place] artery [place] vs. transplanted heart: [place] heart Plan to address problem: On Plavix (3) Hypotension Current Visit: Yes Status: Acute Plan to address problem: On dopamine drip. Titrate to discontinue DC (4) Peripheral neuropathy Current Visit: Yes Status: Chronic Qualifiers: Peripheral neuropathy type: polyneuropathy, unspecified Qualified Code(s): G62.9 - Polyneuropathy, unspecified Plan to address problem: Continue gabapentin (5) Hyperlipidemia Current Visit: Yes Status: Chronic Qualifiers: Hyperlipidemia type: mixed hyperlipidemia Qualified Code(s): E78.2 - Mixed hyperlipidemia Plan to address problem: Continue statins (6) GERD (gastroesophageal reflux disease) Current Visit: Yes Status: Chronic Qualifiers: Esophagitis presence: without esophagitis Qualified Code(s): K21.9 - Gastro-esophageal reflux disease without esophagitis Plan to address problem: Continue PPIs (7) Arrhythmia Current Visit: Yes Status: Chronic Qualifiers: Arrhythmia type: unspecified cardiac arrhythmia Qualified Code(s): I49.9 - Cardiac arrhythmia, unspecified Plan to address problem: Continue amiodarone (8) Person under investigation for COVID-19 Current Visit: Yes Status: Acute Plan to address problem: Unlikely but ED ordered the coronavirus PCR (9) DVT prophylaxis Current Visit: Yes Status: Acute Plan to address problem: On heparin and GI prophylaxis Subjective Date of service: 04/15/20 Principal diagnosis: CHF exacerbation Interval history: 75-year-old man with history of congestive heart failure, hypertension, coronary artery disease and peripheral neuropathy comes in for difficulty breathing of 1 day duration. Patient has orthopnea. Patient has cough. No no fever or chills. No exposure to coronavirus. No COPD or asthma. Patient has indwelling Bustillos catheter. Shortness of breath on minimal exertion. Patient has class IV NYHA symptoms. Patient started on milrinone drip pressure last April 17, 2020 Objective - Constitutional Vitals: Vital Signs - 12hr 04/15/20 04/15/20 04/15/20 10:34 13:01 20:12 Temperature 98.0 F Pulse Rate 80 79 Respiratory 18 Rate Blood Pressure 106/53 O2 Sat by Pulse 92 94 Oximetry 04/15/20 20:35 Temperature 97.5 F L Pulse Rate 81 Respiratory 17 Rate Blood Pressure 117/60 O2 Sat by Pulse 100 Oximetry General appearance: Present: no acute distress, well-nourished - EENT Eyes: PERRL, EOM intact ENT: hearing intact, clear oral mucosa Ears: bilateral: normal - Neck Neck: supple, normal ROM - Respiratory Respiratory effort: normal Respiratory: bilateral: CTA - Breasts Breasts: normal - Cardiovascular Heart rate: 78 Rhythm: regular Heart Sounds: Present: S1 & S2. Absent: gallop, rub Extremities: pulses intact, No edema, normal color, Full ROM - Gastrointestinal General gastrointestinal: Present: soft, non-tender, non-distended, normal bowel sounds - Genitourinary Male genitourinary: normal - Integumentary Integumentary: clear, warm, dry - Musculoskeletal Musculoskeletal: 1, strength equal bilaterally - Neurologic Neurologic: moves all extremities - Psychiatric Psychiatric: memory intact, appropriate mood/affect, intact judgment & insight - Labs CBC & Chem 7: 04/15/20 07:05 04/15/20 07:05 Labs: Abnormal lab results 04/15/20 04/15/20 Range/Units 07:05 07:05 RBC 3.61 L (3.65-5.03) M/mm3 Hgb 11.3 L (11.8-15.2) gm/dl Hct 34.9 L (35.5-45.6) % MCV 97 H (84-94) fl RDW 17.9 H (13.2-15.2) % Lymph % (Auto) 12.6 L (13.4-35.0) % [place] % (Auto) 12.3 H (0.0-7.3) % Lymph # (Auto) 0.9 L (1.2-5.4) K/mm3 [place] # (Auto) 0.9 H (0.0-0.8) K/mm3 Seg Neutrophils % 73.6 H (40.0-70.0) % Sodium 135 L (137-145) mmol/L Carbon Dioxide 21 L (22-30) mmol/L BUN 28 H (9-20) mg/dL Creatinine 1.7 H (0.8-1.3) mg/dL Glucose 106 H (75-100) mg/dL Calcium 8.2 L (8.4-10.2) mg/dL ALT 68 H (7-56) units/L Total Protein 5.9 L (6.3-8.2) g/dL Albumin 2.6 L (3.9-5) g/dL HEART Score - HEART Score EKG: Non-specific Age: > 65 Risk factors: > 3 risk factors or hx of atherosclerotic disease Troponin: Troponin T 0.076 ng/mL (0.00-0.029) H 04/13/20 18:45 - Critical Actions Critical Actions: 4-6 pts:12-16.6% risk of adverse cardiac event. Should be admitted
[2020-04-16] MEDS: cefTRIAXone/NS 2 GM/100 ML 2 GM/100 ML BAG IV SCH (02:15)
[2020-04-16] MEDS: MILRINONE-D5W 20 MG/100 ML 20 MG/100 ML BAG IV SCH ×2 (02:56→19:51)
[2020-04-16] MEDS: oxyCODONE /ACETAMINOPHEN 5-325MG TAB PO PRN ×3 (02:57→22:09)
[2020-04-16] MEDS: ISOSORB DINIT/HYDRALAZINE 20-37.5MG TAB PO SCH ×3 (05:46→21:58)
[2020-04-16] MEDS: FUROSEMIDE 40 MG/4 ML INJ IV SCH (05:47)
[2020-04-16] MEDS: FAMOTIDINE 10 MG TAB PO SCH ×2 (10:27→21:59)
[2020-04-16] MEDS: POTASSIUM CHLORIDE ER 20 MEQ TAB PO SCH (10:27)
[2020-04-16] MEDS: GABAPENTIN 300 MG CAP PO SCH (10:28)
[2020-04-16] MEDS: CLOPIDOGREL 75 MG TAB PO SCH (10:28)
[2020-04-16] MEDS: AMIODARONE 200 MG TAB PO SCH (10:28)
[2020-04-16] MEDS: SPIRONOLACTONE 25 MG TAB PO SCH (10:28)
[2020-04-16] MEDS: HEPARIN 5,000 UNIT/1 ML VIAL SUB-Q SCH ×2 (10:29→21:57)
--- NOTE | 2020-04-16 18:00 | Progress Note ---
Assessment and Plan - Patient Problems (1) Acute exacerbation of CHF (congestive heart failure) Current Visit: Yes Status: Acute Qualifiers: Heart failure type: combined systolic and diastolic Qualified Code(s): I50.43 - Acute on chronic combined systolic (congestive) and diastolic (congestive) heart failure Plan to address problem: BNP is elevated History is consistent with CHF exacerbation Daily weights and intake output IV Lasix only 1 dose at 6 AM because of the hyper hypotension Patient was on dopamine which was discontinued Echocardiogram for ejection fraction Cardiology consult Appreciated On milrinone drip Ejection fraction was 25 to 30% (2) Coronary artery disease Current Visit: Yes Status: Chronic Qualifiers: Coronary Disease-Associated Artery/Lesion type: [place] artery [place] vs. transplanted heart: [place] heart Plan to address problem: On Plavix (3) Hypotension Current Visit: Yes Status: Acute Plan to address problem: On dopamine drip. Titrate to discontinue DC (4) Peripheral neuropathy Current Visit: Yes Status: Chronic Qualifiers: Peripheral neuropathy type: polyneuropathy, unspecified Qualified Code(s): G62.9 - Polyneuropathy, unspecified Plan to address problem: Continue gabapentin (5) Hyperlipidemia Current Visit: Yes Status: Chronic Qualifiers: Hyperlipidemia type: mixed hyperlipidemia Qualified Code(s): E78.2 - Mixed hyperlipidemia Plan to address problem: Continue statins (6) GERD (gastroesophageal reflux disease) Current Visit: Yes Status: Chronic Qualifiers: Esophagitis presence: without esophagitis Qualified Code(s): K21.9 - Gastro-esophageal reflux disease without esophagitis Plan to address problem: Continue PPIs (7) Arrhythmia Current Visit: Yes Status: Chronic Qualifiers: Arrhythmia type: unspecified cardiac arrhythmia Qualified Code(s): I49.9 - Cardiac arrhythmia, unspecified Plan to address problem: Continue amiodarone (8) Person under investigation for COVID-19 Current Visit: Yes Status: Acute Plan to address problem: Unlikely but ED ordered the coronavirus PCR (9) DVT prophylaxis Current Visit: Yes Status: Acute Plan to address problem: On heparin and GI prophylaxis Subjective Date of service: 04/16/20 Principal diagnosis: CHF exacerbation Interval history: 75-year-old man with history of congestive heart failure, hypertension, coronary artery disease and peripheral neuropathy comes in for difficulty breathing of 1 day duration. Patient has orthopnea. Patient has cough. No no fever or chills. No exposure to coronavirus. No COPD or asthma. Patient has indwelling Bustillos catheter. Shortness of breath on minimal exertion. Patient has class IV NYHA symptoms. Patient started on milrinone drip pressure last April 17, 2020 Symptomatically better Patient to get out of bed and walk Possible discharge tomorrow Objective - Constitutional Vitals: Vital Signs - 12hr 04/16/20 04/16/20 04/16/20 08:04 08:25 09:18 Temperature 98.5 F Pulse Rate 83 75 Respiratory 18 Rate Blood Pressure 120/61 O2 Sat by Pulse 95 98 Oximetry General appearance: Present: no acute distress, well-nourished - EENT Eyes: PERRL, EOM intact ENT: hearing intact, clear oral mucosa Ears: bilateral: normal - Neck Neck: supple, normal ROM - Respiratory Respiratory effort: normal Respiratory: bilateral: CTA - Breasts Breasts: normal - Cardiovascular Heart rate: 78 Rhythm: regular Heart Sounds: Present: S1 & S2. Absent: gallop, rub Extremities: pulses intact, No edema, normal color, Full ROM - Gastrointestinal General gastrointestinal: Present: soft, non-tender, non-distended, normal bowel sounds - Genitourinary Male genitourinary: normal - Integumentary Integumentary: clear, warm, dry - Musculoskeletal Musculoskeletal: 1, strength equal bilaterally - Neurologic Neurologic: moves all extremities - Psychiatric Psychiatric: memory intact, appropriate mood/affect, intact judgment & insight - Labs CBC & Chem 7: 04/15/20 07:05 04/15/20 07:05 HEART Score - HEART Score EKG: Non-specific Age: > 65 Risk factors: > 3 risk factors or hx of atherosclerotic disease Troponin: Troponin T 0.076 ng/mL (0.00-0.029) H 04/13/20 18:45 - Critical Actions Critical Actions: 4-6 pts:12-16.6% risk of adverse cardiac event. Should be admitted
--- NOTE | 2020-04-16 18:46 | Progress Note ---
Assessment and Plan - Patient Problems (1) Acute exacerbation of CHF (congestive heart failure) Current Visit: Yes Status: Acute Qualifiers: Heart failure type: combined systolic and diastolic Qualified Code(s): I50.43 - Acute on chronic combined systolic (congestive) and diastolic (congestive) heart failure Plan to address problem: Patient with a history of dilated cardiomyopathy, in situ cardiac defibrillator, usual care at the [facility]. He presents with shortness of breath and evidence of decompensated congestive heart failure. In addition to guideline directed medical therapy, we will use aggressive diuretic therapy, salt reduction and trial of intravenous milrinone. An echocardiogram today reveals a four-chamber cardiomyopathy, with left ventricular ejection fraction 25 to 30%. Subjective Date of service: 04/16/20 Principal diagnosis: CHF exacerbation Interval history: Patient looks and feels better, still on intravenous milrinone. Echocardiogram today reveals a four-chamber cardiomyopathy with left ventricular ejection fraction 25 to 30%. Objective Vital Signs Temp Pulse Resp BP Pulse Ox 04/16/20 09:18 75 04/16/20 08:25 98.5 F 83 18 120/61 98 04/16/20 08:04 95 04/16/20 05:44 97.3 F L 83 18 81/54 95 04/16/20 00:00 80 04/15/20 23:49 97.6 F 80 17 103/46 90 04/15/20 20:35 97.5 F L 81 17 117/60 100 04/15/20 20:12 94 - Physical Examination General: No Apparent Distress HEENT: Positive: PERRL Neck: Positive: neck supple Cardiac: Positive: Reg Rate and Rhythm Lungs: Positive: Decreased Breath Sounds Neuro: Positive: Grossly Intact Abdomen: Positive: Soft Skin: Positive: Clear Extremities: Absent: edema - Imaging and Cardiology EKG: report reviewed (Sinus rhythm) Pacemaker: ventricular pacing w/capt, atrial pacing w/capture
[2020-04-17] MEDS: cefTRIAXone/NS 2 GM/100 ML 2 GM/100 ML BAG IV SCH (01:20)
[2020-04-17] MEDS: ISOSORB DINIT/HYDRALAZINE 20-37.5MG TAB PO SCH ×3 (06:20→22:00)
[2020-04-17] MEDS: FUROSEMIDE 40 MG/4 ML INJ IV SCH ×2 (06:20→09:49)
[2020-04-17 07:34] LABS: Basophils % (Auto) 0.5 % (0.0-1.8); Eosinophils # (Auto) 0.1 K/mm3 (0.0-0.4); Eosinophils % (Auto) 1.3 % (0.0-4.3); Hematocrit 35.1 % (35.5-45.6); Hemoglobin 11.7 gm/dl (11.8-15.2); Lymphocytes % (Auto) 12.6 % (13.4-35.0); Mean Corpuscular HGB Conc 33 % (32-34); Mean Corpuscular Volume 95 fl (84-94); Monocytes % (Auto) 12.3 % (0.0-7.3); Platelet Count 255 K/mm3 (140-440); Red Blood Count 3.71 M/mm3 (3.65-5.03); Red Cell Distribution Width 18.2 % (13.2-15.2)
[2020-04-17 07:51] LABS: Calcium 8.3 mg/dL (8.4-10.2)
[2020-04-17] MEDS: oxyCODONE /ACETAMINOPHEN 5-325MG TAB PO PRN ×2 (08:29→19:55)
[2020-04-17] MEDS: FAMOTIDINE 10 MG TAB PO SCH ×2 (09:46→21:36)
[2020-04-17] MEDS: AMIODARONE 200 MG TAB PO SCH (09:46)
[2020-04-17] MEDS: CLOPIDOGREL 75 MG TAB PO SCH (09:46)
[2020-04-17] MEDS: GABAPENTIN 300 MG CAP PO SCH (09:46)
[2020-04-17] MEDS: HEPARIN 5,000 UNIT/1 ML VIAL SUB-Q SCH ×2 (09:49→21:36)
[2020-04-17] MEDS: POTASSIUM CHLORIDE ER 20 MEQ TAB PO SCH (09:49)
[2020-04-17] MEDS: SPIRONOLACTONE 25 MG TAB PO SCH (10:01)
--- NOTE | 2020-04-17 12:40 | Progress Note ---
Assessment and Plan - Patient Problems (1) Acute exacerbation of CHF (congestive heart failure) Current Visit: Yes Status: Acute Qualifiers: Heart failure type: combined systolic and diastolic Qualified Code(s): I50.43 - Acute on chronic combined systolic (congestive) and diastolic (congestive) heart failure Plan to address problem: Patient with a history of dilated cardiomyopathy, in situ cardiac defibrillator, usual care at the [facility]. He presented with shortness of breath and evidence of decompensated congestive heart failure. He looks and feels better after guideline directed medical therapy including intravenous milrinone. Echocardiogram shows a four-chamber cardiomyopathy, with left ventricular ejection fraction 25 to 30%. We will continue medical management, patient is stable for discharge back to the [facility] on oral guideline directed medical therapy. Discontinue IV milrinone on discharge. Subjective Date of service: 04/17/20 Principal diagnosis: CHF exacerbation Interval history: Patient looks and feels better no new cardiac complaints. Objective Vital Signs Temp Pulse Resp BP Pulse Ox 04/17/20 11:38 97.7 F 57 L 20 84/57 93 04/17/20 07:57 97.9 F 83 18 112/56 94 04/17/20 06:44 98.0 F 78 18 82/51 76 L 04/16/20 23:53 98.0 F 80 18 103/41 88 04/16/20 20:31 98.0 F 83 20 82/56 99 04/16/20 19:33 98 04/16/20 17:04 98.5 F 83 18 121/58 93 - Physical Examination General: No Apparent Distress HEENT: Positive: PERRL Neck: Positive: neck supple Cardiac: Positive: Reg Rate and Rhythm Lungs: Positive: Decreased Breath Sounds Neuro: Positive: Grossly Intact Abdomen: Positive: Soft Skin: Positive: Clear Extremities: Absent: edema - Labs and Meds CBC 04/17/20 Range/Units 07:03 WBC 7.8 (4.5-11.0) K/mm3 RBC 3.71 (3.65-5.03) M/mm3 Hgb 11.7 L (11.8-15.2) gm/dl Hct 35.1 L (35.5-45.6) % Plt Count 255 (140-440) K/mm3 Lymph # (Auto) 1.0 L (1.2-5.4) K/mm3 [place] # (Auto) 1.0 H (0.0-0.8) K/mm3 Eos # (Auto) 0.1 (0.0-0.4) K/mm3 Baso # (Auto) 0.0 (0.0-0.1) K/mm3 Comprehensive Metabolic Panel 04/17/20 Range/Units 07:03 Sodium 134 L (137-145) mmol/L Potassium 5.1 H (3.6-5.0) mmol/L Chloride 103.8 (98-107) mmol/L Carbon Dioxide 23 (22-30) mmol/L BUN 20 (9-20) mg/dL Creatinine 1.5 H (0.8-1.3) mg/dL Glucose 116 H (75-100) mg/dL Calcium 8.3 L (8.4-10.2) mg/dL - Imaging and Cardiology EKG: report reviewed (Sinus rhythm) Pacemaker: ventricular pacing w/capt, atrial pacing w/capture
--- NOTE | 2020-04-17 22:27 | Progress Note ---
Assessment and Plan - Patient Problems (1) Acute exacerbation of CHF (congestive heart failure) Current Visit: Yes Status: Acute Qualifiers: Heart failure type: combined systolic and diastolic Qualified Code(s): I50.43 - Acute on chronic combined systolic (congestive) and diastolic (congestive) heart failure Plan to address problem: BNP is elevated History is consistent with CHF exacerbation Daily weights and intake output IV Lasix only 1 dose at 6 AM because of the hyper hypotension Patient was on dopamine which was discontinued Echocardiogram for ejection fraction--ejection fraction is 25 to 30% Cardiology consult Appreciated On milrinone drip Ejection fraction was 25 to 30% Echo report Echocardiogram Four-chamber dilated cardiomyopathy Global left ventricular systolic function is severely depressed Estimated ejection fraction is 25 to 30% Mild to moderate mitral regurgitation Mild to moderate aortic regurgitation Moderate tricuspid regurgitation Moderate severe pulmonary hypertension Right ventricular systolic pressure is calculated at 59 mmHg A pacemaker wire is visualized in the right heart chambers. 78 (2) Coronary artery disease Current Visit: Yes Status: Chronic Qualifiers: Coronary Disease-Associated Artery/Lesion type: [place] artery [place] vs. transplanted heart: [place] heart Plan to address problem: On Plavix (3) Hypotension Current Visit: Yes Status: Acute Plan to address problem: On dopamine drip. Titrate to discontinue DC (4) Peripheral neuropathy Current Visit: Yes Status: Chronic Qualifiers: Peripheral neuropathy type: polyneuropathy, unspecified Qualified Code(s): G62.9 - Polyneuropathy, unspecified Plan to address problem: Continue gabapentin (5) Hyperlipidemia Current Visit: Yes Status: Chronic Qualifiers: Hyperlipidemia type: mixed hyperlipidemia Qualified Code(s): E78.2 - Mixed hyperlipidemia Plan to address problem: Continue statins (6) GERD (gastroesophageal reflux disease) Current Visit: Yes Status: Chronic Qualifiers: Esophagitis presence: without esophagitis Qualified Code(s): K21.9 - Gastro-esophageal reflux disease without esophagitis Plan to address problem: Continue PPIs (7) Arrhythmia Current Visit: Yes Status: Chronic Qualifiers: Arrhythmia type: unspecified cardiac arrhythmia Qualified Code(s): I49.9 - Cardiac arrhythmia, unspecified Plan to address problem: Continue amiodarone (8) Person under investigation for COVID-19 Current Visit: Yes Status: Acute Plan to address problem: Coronavirus PCR negative Coronavirus PCR ordered again for tomorrow so that the patient can go to the intermediate (9) DVT prophylaxis Current Visit: Yes Status: Acute Plan to address problem: On heparin and GI prophylaxis (10) Discharge planning issues Current Visit: Yes Status: Acute Plan to address problem: Patient was discharged to [facility] if Covid test is negative Patient finished milrinone drip today CHF is better Subjective Date of service: 04/17/20 Principal diagnosis: CHF exacerbation Interval history: 75-year-old man with history of congestive heart failure, hypertension, coronary artery disease and peripheral neuropathy comes in for difficulty breathing of 1 day duration. Patient has orthopnea. Patient has cough. No no fever or chills. No exposure to coronavirus. No COPD or asthma. Patient has indwelling Bustillos catheter. Shortness of breath on minimal exertion. Patient has class IV NYHA symptoms. Patient started on milrinone drip for 72 hours which ended today on April 17, 2020 around 15 hours Symptomatically better Patient to get out of bed and walk Possible discharge tomorrow to [facility] after Covid test Patient symptomatically better Ejection fraction is 25 to 30% Objective - Constitutional Vitals: Vital Signs - 12hr 04/17/20 04/17/20 04/17/20 11:38 15:53 19:16 Temperature 97.7 F 97.9 F 98.0 F Pulse Rate 57 L 80 85 Respiratory 20 18 18 Rate Blood Pressure 84/57 88/36 95/39 O2 Sat by Pulse 93 92 88 Oximetry General appearance: Present: no acute distress, well-nourished - EENT Eyes: PERRL, EOM intact ENT: hearing intact, clear oral mucosa Ears: bilateral: normal - Neck Neck: supple, normal ROM - Respiratory Respiratory effort: normal Respiratory: bilateral: CTA - Breasts Breasts: normal - Cardiovascular Rhythm: regular Heart Sounds: Present: S1 & S2. Absent: gallop, rub Extremities: pulses intact, No edema, normal color, Full ROM - Gastrointestinal General gastrointestinal: Present: soft, non-tender, non-distended, normal bowel sounds - Genitourinary Male genitourinary: normal - Integumentary Integumentary: clear, warm, dry - Musculoskeletal Musculoskeletal: 1, strength equal bilaterally - Neurologic Neurologic: moves all extremities - Psychiatric Psychiatric: memory intact, appropriate mood/affect, intact judgment & insight - Allied health notes Allied health notes reviewed: nursing, case management - Labs CBC & Chem 7: 04/17/20 07:03 04/17/20 07:03 Labs: Abnormal lab results 04/17/20 04/17/20 Range/Units 07:03 07:03 Hgb 11.7 L (11.8-15.2) gm/dl Hct 35.1 L (35.5-45.6) % MCV 95 H (84-94) fl RDW 18.2 H (13.2-15.2) % Lymph % (Auto) 12.6 L (13.4-35.0) % [place] % (Auto) 12.3 H (0.0-7.3) % Lymph # (Auto) 1.0 L (1.2-5.4) K/mm3 [place] # (Auto) 1.0 H (0.0-0.8) K/mm3 Seg Neutrophils % 73.3 H (40.0-70.0) % Sodium 134 L (137-145) mmol/L Potassium 5.1 H (3.6-5.0) mmol/L Creatinine 1.5 H (0.8-1.3) mg/dL Glucose 116 H (75-100) mg/dL Calcium 8.3 L (8.4-10.2) mg/dL Echocardiogram Four-chamber dilated cardiomyopathy Global left ventricular systolic function is severely depressed Estimated ejection fraction is 25 to 30% Mild to moderate mitral regurgitation Mild to moderate aortic regurgitation Moderate tricuspid regurgitation Moderate severe pulmonary hypertension Right ventricular systolic pressure is calculated at 59 mmHg A pacemaker wire is visualized in the right heart chambers. 78 HEART Score - HEART Score EKG: Non-specific Age: > 65 Risk factors: > 3 risk factors or hx of atherosclerotic disease Troponin: Troponin T 0.076 ng/mL (0.00-0.029) H 04/13/20 18:45 - Critical Actions Critical Actions: 4-6 pts:12-16.6% risk of adverse cardiac event. Should be admitted
[2020-04-18] MEDS: oxyCODONE /ACETAMINOPHEN 5-325MG TAB PO PRN (01:53)
[2020-04-18] MEDS: cefTRIAXone/NS 2 GM/100 ML 2 GM/100 ML BAG IV SCH (01:56)
[2020-04-18] MEDS: FUROSEMIDE 40 MG/4 ML INJ IV SCH (06:11)
[2020-04-18] MEDS: ISOSORB DINIT/HYDRALAZINE 20-37.5MG TAB PO SCH (06:11)
[2020-04-18] MEDS: AMIODARONE 200 MG TAB PO SCH (09:33)
[2020-04-18] MEDS: FAMOTIDINE 10 MG TAB PO SCH (09:33)
[2020-04-18] MEDS: GABAPENTIN 300 MG CAP PO SCH (09:33)
[2020-04-18] MEDS: SPIRONOLACTONE 25 MG TAB PO SCH (09:34)
[2020-04-18] MEDS: HEPARIN 5,000 UNIT/1 ML VIAL SUB-Q SCH (09:35)
[2020-04-18] MEDS: CLOPIDOGREL 75 MG TAB PO SCH (09:35)
--- NOTE | 2020-04-18 10:07 | Discharge Summary ---
Providers - Providers Date of Admission: 04/13/20 17:07 Date of discharge: 04/18/20 Attending physician: CLAUS BHAT 04/14/20 01:19 Consult to Physician [CONS] Routine Comment: called answ. serv./ mervat Consulting Provider: MALCOLM KUMARI Physician Instructions: Reason For Exam: CHF exacerbation 04/17/20 12:14 Physical Therapy Evaluation and Treat [CONS] Urgent Comment: Reason For Exam: debiliy Date of last referral: 04/17/20 04/17/20 12:17 Occupational Therapy Evaluate and Treat [CONS] Routine Comment: Reason For Exam: debillity Primary care physician: SHAQUILLE SAUCEDA Hospitalization Reason for admission: SOB Condition: Critical Hospital course: 75-year-old man with history of congestive heart failure, hypertension, coronary artery disease and peripheral neuropathy comes in for difficulty breathing of 1 day duration. Patient had orthopnea. Patient has cough. No no fever or chill s. No exposure to coronavirus. No COPD or asthma. Patient has indwelling Bustillos catheter. Shortness of breath on minimal exertion. Patient has class IV NYHA symptoms. The patient was admitted with diagnosis of acute systolic heart failure exacerbation and acute hypoxic respiratory failure. Echocardiogram revealed EF of 25 to 30% the patient was seen by cardiology in consultation and started on milrinone drip for 72 hours which ended today on April 17, 2020 around 15 hours. Patient was noted to be symptomatically better and ambulated without dyspnea. Case management was consulted with discharge planning and recommendations were for the patient to discharge back to [facility]. If Covid testing negative for clearance today, patient will discharge. Dedicated discharge time 35 minutes. Disposition: [id number]/[id number] Time spent for discharge: 35 - Discharge Diagnoses (1) Acute respiratory failure with hypoxia Status: Acute (2) Acute decompensated heart failure Status: Acute (3) Acute exacerbation of CHF (congestive heart failure) Status: Acute Qualifiers: Heart failure type: combined systolic and diastolic Qualified Code(s): I50.43 - Acute on chronic combined systolic (congestive) and diastolic (congestive) heart failure (4) Coronary artery disease Status: Chronic Qualifiers: Coronary Disease-Associated Artery/Lesion type: [place] artery [place] vs. transplanted heart: [place] heart (5) Hyperlipidemia Status: Chronic Qualifiers: Hyperlipidemia type: mixed hyperlipidemia Qualified Code(s): E78.2 - Mixed hyperlipidemia Core Measure Documentation - Palliative Care Palliative Care/ Comfort Measures: Not Applicable - Core Measures Any of the following diagnoses?: heart failure - Heart Failure Discharge Requirements Reason for no PREMA/ARB: Renal impairment Beta dylan at discharge: Yes Exam - Constitutional Vitals: Temp Pulse Resp BP Pulse Ox 98.1 F 93 H 18 168/98 97 04/18/20 08:46 04/18/20 09:34 04/18/20 08:46 04/18/20 09:34 04/18/20 08:46 General appearance: Present: no acute distress, well-nourished - EENT Eyes: Present: PERRL ENT: hearing intact, clear oral mucosa - Neck Neck: Present: supple, normal ROM - Respiratory Respiratory effort: normal Respiratory: bilateral: CTA - Cardiovascular Heart Sounds: Present: S1 & S2. Absent: rub, click - Extremities Extremities: pulses symmetrical, No edema Peripheral Pulses: within normal limits - Abdominal General gastrointestinal: Present: soft, non-tender, non-distended, normal bowel sounds Male genitourinary: Present: normal - Integumentary Integumentary: Present: clear, warm, dry - Musculoskeletal Musculoskeletal: gait normal, strength equal bilaterally - Psychiatric Psychiatric: appropriate mood/affect, intact judgment & insight - Neurologic Neurologic: CNII-XII intact, moves all extremities Plan Activity: advance as tolerated Weight Bearing Status: Weight Bear as Tolerated Diet: low fat, low cholesterol, low salt Follow up with: SHAQUILLE SAUCEDA MD [Primary Care Provider] - 3-5 Days Prescriptions: Furosemide [Lasix TAB] 40 mg PO QDAY #30 tablet
--- NOTE | 2020-04-18 12:05 | Progress Note ---
Assessment and Plan - Patient Problems (1) Acute exacerbation of CHF (congestive heart failure) Current Visit: Yes Status: Acute Qualifiers: Heart failure type: combined systolic and diastolic Qualified Code(s): I50.43 - Acute on chronic combined systolic (congestive) and diastolic (congestive) heart failure Plan to address problem: Patient with a history of dilated cardiomyopathy, in situ cardiac defibrillator, usual care at the [facility]. He presented with shortness of breath and evidence of decompensated congestive heart failure. He looks and feels better after guideline directed medical therapy including intravenous milrinone. Echocardiogram shows a four-chamber cardiomyopathy, with left ventricular ejection fraction 25 to 30%. We will continue medical management, [facility]. Subjective Date of service: 04/18/20 Principal diagnosis: CHF exacerbation Interval history: Patient is comfortable, looks and feels better, [facility]. Objective Vital Signs Temp Pulse Pulse Pulse Resp BP Pulse Ox 04/18/20 10:00 89 89 18 04/18/20 09:34 93 H 168/98 04/18/20 08:46 98.1 F 86 18 112/59 97 04/18/20 06:11 103/46 04/18/20 03:39 98.0 F 88 18 88/52 100 04/17/20 23:17 98.0 F 86 18 103/46 94 04/17/20 22:00 80 18 04/17/20 19:16 98.0 F 85 18 95/39 88 04/17/20 15:53 97.9 F 80 18 88/36 92 - Physical Examination General: No Apparent Distress HEENT: Positive: PERRL Neck: Positive: neck supple Cardiac: Positive: Reg Rate and Rhythm Lungs: Positive: Decreased Breath Sounds Neuro: Positive: Grossly Intact Abdomen: Positive: Soft Skin: Positive: Clear Extremities: Absent: edema - Imaging and Cardiology EKG: report reviewed (Sinus rhythm) Pacemaker: ventricular pacing w/capt, atrial pacing w/capture
[2020-04-18 20:30] VITALS: BP 110/52
== END 2020-04-18 21:45 | DRG 291 ==
LOC: ED 11:09 → CC1 17:07 → 4A 04-14 14:42
PROVIDERS: ADMIT Internal Medicine; ATTEND Hospitalist
PROC: 02HV33Z Insertion of Infusion Device into Superior Vena Cava, Percutaneous Approach (ICD-10-PCS; principal; 2020-04-13)
PROC: B548ZZA Ultrasonography of Superior Vena Cava, Guidance (ICD-10-PCS; 2020-04-13)
DX: I11.0 Hypertensive heart disease with heart failure (principal); J96.01 Acute respiratory failure with hypoxia; E87.1 Hypo-osmolality and hyponatremia; R57.0 Cardiogenic shock; I50.43 Acute on chronic combined systolic (congestive) and diastolic (congestive) heart failure; I95.9 Hypotension, unspecified; I25.10 Atherosclerotic heart disease of native coronary artery without angina pectoris; G62.9 Polyneuropathy, unspecified; Z20.822 Contact with and (suspected) exposure to COVID-19; Z82.49 Family history of ischemic heart disease and other diseases of the circulatory system; E78.2 Mixed hyperlipidemia; K21.9 Gastro-esophageal reflux disease without esophagitis; I49.9 Cardiac arrhythmia, unspecified; Z79.899 Other long term (current) drug therapy; Z88.8 Allergy status to other drugs, medicaments and biological substances; I42.0 Dilated cardiomyopathy
CPT/HCPCS: 36415; 71045; 78580; 80048; 80053; 80061; 81001; 82140; 82728; 82962; 83036; 83615; 83735; 83880; 84145; 84484; 85025; 85379; 85610; 85730; 86140; 87040; 87086; 90471; 93005; 93306; 94760; G0378; A9270-GY; A9540; J0692; J0696; J1265; J1644; J1940; J2260; J3370; J7040; J7050; U0003